=== PATIENT | female | born 1940 | race Caucasian/White ===

== ENCOUNTER → 2017-01-25 | Outpatient (CLI) | payer MEDICARE, OTHER ==
[~2017-01-25] MED LIST: ACIDOPHILUS PO; ADVAIR 250/28 DISKU1 IH; ALPARAZOLAM0.5 MG PO; ARAVA20 MG PO; ASMANEX TW0.22 MG/A1 IH; ASPIRIN E.C. 8181 MG PO; CELEBREX 200MG200 MG PO; CIPRO 500MG TA500 MG PO; CLEOCIN; DOXYCYCLINE 10100 MG PO; ENALAPRIL2.5 MG PO; FENTANYL PATCH; FISH OIL CONC1000 MG PO; IMDUR30 MG PO; IODINE PO; ISTALOL 2.5 ML2.5 ML OP; LEXAPRO20 MG PO; LIPITOR 40MG TA40 MG PO; LIVALO4 MG PO; MULTIPLE VITAMI1 TAB PO; NITROQUICK0.4 MG SL; NORCO; NORCO 325 MG-51 TAB PO; NORCO 325 MG-7.1 TAB PO; PAXIL CR25 MG PO; PLAVIX 75MG TAB75 MG PO; PRILOSEC 20MG20 MG PO; PRILOSEC20 MG PO; PROTONIX 40MG T40 MG PO; ROBITUSSIN15 MG/5 ML PO; SPIRIVA18 MCG IH; TOPROL PO; TOPROL XL 25MG25 MG PO; TOPROL XL25 MG PO; TUMS500 MG PO; TYLENOL 500MG500 MG PO; TYLENOL EXTRA500 M1 PO; TYLENOL PM EXTR1 TA1 PO; VICODIN 5/5001 UDTAB PO; VITAMIN B COMPL1 SGL PO; VITAMIN B COMPL1 TA1 PO; VITAMIN C BUFF500 MG PO; XANAX .25M0.25 MG/TA PO; ZOCOR40 MG PO; ZYRTEC10 MG PO; [UNRECOGNIZED DRUG - CODE] PO
== END ==
LOC: BHSO 10:52
DX: F41.1 Generalized anxiety disorder (principal)

== ENCOUNTER → 2017-07-27 | Outpatient (CLI) | payer MEDICARE, OTHER | LOC: BHSO 10:57 | DX: F41.1 Generalized anxiety disorder (principal) ==

== ENCOUNTER → 2018-02-01 | Outpatient (CLI) | payer MEDICARE, OTHER | LOC: BHSO 10:59 | DX: F41.1 Generalized anxiety disorder (principal) | CPT/HCPCS: G0463 ==

== ENCOUNTER → 2018-08-29 | Outpatient (CLI) | payer MEDICARE, OTHER | LOC: BHSO 13:55 | DX: F41.1 Generalized anxiety disorder (principal) | CPT/HCPCS: G0463 ==

== ENCOUNTER → 2019-02-27 | Outpatient (CLI) | payer MEDICARE, OTHER | LOC: BHSO 11:22 | DX: F41.1 Generalized anxiety disorder (principal) | CPT/HCPCS: G0463 ==

== ENCOUNTER → 2019-03-28 | Outpatient (CLI) | payer MEDICARE, OTHER | LOC: MC.RAD 10:45 | DX: Z12.31 Encounter for screening mammogram for malignant neoplasm of breast (principal) ==

== ENCOUNTER 2019-07-09 16:00 | Inpatient (IN) | payer MEDICARE ==
[~2019-07-09] VITALS: Ht 167.6 cm; Wt 50.1 kg
[2019-07-09 17:43] VITALS: BP 155/56; PULSE 72; TEMP 98.2
--- NOTE | 2019-07-09 18:32 | NUR ---
CONSULT CALLED TO [facility] FOR DR. BREANNA SANTO. THEY ARE NOT REFUGE [employer] BUT SPECIFIED DR CARLOS TO BE CONSULTED.
[2019-07-09 20:29] LABS: BASO # 0.1 (0.0-0.2); BASO % 0.6 % (0.0-2.0); EOS # 0.5 (0.0-0.7); EOS % 4.7 % (0-4.0); GRAN # 6.8 (1.4-6.5); GRAN % 70.6 % (42.2-75.2); LYMPH # 1.7 (1.2-3.4); LYMPH % 17.9 % (20.0-51.0); MEAN CELL VOLUME 98 fl (80.0-100.0); MEAN CORPUSCULAR HGB CONC 31 g/dl (33.0-37.0); MEAN PLATELET VOLUME 9.9 fl (7.4-10.4); MONO # 0.6 (0.1-0.6); MONO % 5.8 % (1.7-9.3); PLATELET COUNT 408 K/mm3 (130-400); REDCELL DISTRIBUTION WIDTH-CV 16.3 % (11.5-14.5)
[2019-07-09 20:33] LABS: HEMATOCRIT 23.4 % (37.0-47.0); HEMOGLOBIN 7.3 g/dl (12.5-16.0); MEAN CORPUSCULAR HEMOGLOBIN 30 pg (27.0-31.0)
[2019-07-09 20:46] LABS: CALCIUM 8.3 mg/dL (8.4-10.2); CREATININE, serum 0.9 (0.52-1.25); POTASSIUM 3.8 mmol/L (3.4-5.0)
[2019-07-09 20:51] LABS: CALCIUM 8.3 mg/dL (8.4-10.2); CREATININE, serum 0.89 (0.52-1.25); POTASSIUM 3.9 mmol/L (3.4-5.0)
[2019-07-09 21:21] LABS: THYROID STIMULATING HORMONE 1.37 uIU/mL (0.465-4.680)
[2019-07-09] MEDS ORDERED: PROTONIX 40MG T40 MG PO (21:46)
[2019-07-09] MEDS ORDERED: CYMBALTA 30MG30 MG PO (21:48)
--- NOTE | 2019-07-09 22:00 | NUR ---
Patient assessed at this time. Alert and oriented x 4, and able to make needs known. Reports level 8 pain to feet. Given PRN Antoine as requested for pain. IV to right forearm flushed. Site is without redness, warmth, swelling, and pain. LS CTA. Respirations even and unlabored. Denies SOB and dyspnea. HRR. Telemetry in place-NS. Capillary refill less than 3 seconds. Non-tenting skin turgor. BSAx4. 2+ edema BLE. Right foot partial amputation. Dressing to area CDI. Dressings to left toes x2, and left mims CDI. Doppler used to find pedal pulses. Resting in bed watching TV at this time. Call light is within reach.
--- NOTE | 2019-07-09 22:40 | NUR ---
Patient continues to complain of level 8 pain to left foot. Requested PRN APAP. Given as requested.
[2019-07-09 22:54] VITALS: BP 103/46; PULSE 80; TEMP 98.9
--- NOTE | 2019-07-09 23:45 | NUR ---
Continues to have pain to feet. Rated pain as a 9. Tearful, sitting on side of bed massaging feet. Given 2nd dose of PRN Helena.
[2019-07-10] VITALS (7 sets, daily range): BP systolic 98–152; BP diastolic 50–56; PULSE 56–89; TEMP 97.2–99
--- NOTE | 2019-07-10 06:04 | NUR ---
Patient has not voiced any furhter complaints of pain or discomfort at this time. Has called for assistance with going to the bathroom. Voices no questions, needs, or concerns at this time. Resting in bed with call light within reach.
--- NOTE | 2019-07-10 08:30 | NUR ---
Entered patient room as call light was on. Patient was on commode and assisted from commode to bed. She is upset, states that ortho put too much dressing on her foot and it was unnecessary. She does verbalize she has pain. Was administered PRN pain medication per her request. Respirations are even and nonlabored. Call light and personal items are within reach.
--- NOTE | 2019-07-10 09:06 | NUR ---
Initial visit; Patient thanked Hammersmith Helper for looking in on her, listening and offering spiritual care. Hammersmith Helper will continue to look in on [place].
[2019-07-10 10:44] LABS: IRON,SERUM 34 ug/dL (35-150)
[2019-07-10 11:00] LABS: TOTAL IRON BINDING CAPACITY 231 ug/dL (265-497)
[2019-07-10 11:39] LABS: BASO # 0.1 (0.0-0.2); BASO % 0.7 % (0.0-2.0); EOS # 0.5 (0.0-0.7); EOS % 5.6 % (0-4.0); GRAN # 6.5 (1.4-6.5); GRAN % 72.5 % (42.2-75.2); LYMPH # 1.3 (1.2-3.4); LYMPH % 14.3 % (20.0-51.0); MEAN CELL VOLUME 98 fl (80.0-100.0); MEAN CORPUSCULAR HGB CONC 32 g/dl (33.0-37.0); MONO # 0.6 (0.1-0.6); MONO % 6.6 % (1.7-9.3); PLATELET COUNT 435 K/mm3 (130-400); REDCELL DISTRIBUTION WIDTH-CV 16.3 % (11.5-14.5)
[2019-07-10 11:49] LABS: HEMATOCRIT 23.5 % (37.0-47.0); HEMOGLOBIN 7.4 g/dl (12.5-16.0); MEAN CORPUSCULAR HEMOGLOBIN 31 pg (27.0-31.0)
[2019-07-10 11:58] LABS: BILIRUBIN,TOTAL 0.2 mg/dL (0.0-1.0); C-REACTIVE PROTEIN 4.7 mg/dL (0.0-0.9); CALCIUM 8.5 mg/dL (8.4-10.2); MAGNESIUM 1.7 mg/dL (1.6-2.3); POTASSIUM 3.8 mmol/L (3.4-5.0); TOTAL PROTEIN 6.4 gm/dL (6.4-8.2)
--- NOTE | 2019-07-10 16:47 | NUR ---
Medical Radiation Tech met with patient to discuss discharge planning. Patient lives alone in [place]. Patient sees Dr. Herman for primary care and has [facility] deliver her medications. Patient reports she is mostly independent with ADLS and uses a walker and cane for assistance. Patient does not have DPOA-HC but wants her daughter Go and her sister Isabel to be designated. Patient states she does not want to complete form right now but may be up to it tomorrow. Patient states she plans to go home upon discharge and wants to be discharged home as soon as possible. Patient states she has [facility] past. SW will continue to follow as needed.
--- NOTE | 2019-07-10 16:47 | NUR ---
Patient removed dressing that orthopedics placed this morning around 1100 leaving her whole foot wound exposed on the right. Her wound is completely covered in slough. Later in the afternoon therapy has been wanting to ambulate patient and she requested a large bandaid to place over the wound. We did not have large bandaids, only standard. Patient stated thats what she wanted to use, I suggested that it would not be a good idea to use those as the adhesive would stick to the wound bed, she declined the gauze or nursing recommendation. She proceeded to stick bandaids to area and put sock on to walk. She also had placed call to Dr. Maldonado to speak with him as she was unhappy with things at the hospital. We did have a 3 way phone call, she stated she wasnt receiving her pain medication which she had as charted in OCT. She expressed she wanted her celebrex, was explained to her again she could not receive the medication as her hemaglobin has decreased. Dr. Maldonado explained to patient things that happen during hospital stays and she has seemed to be pleased.
[2019-07-10 21:11] LABS: HAPTOGLOBIN 282 mg/dL (36-195); TRANSFERRIN 158 mg/dL (192-382)
[2019-07-10 21:29] LABS: FOLATE (FOLIC ACID) 9.1 ng/mL (7.0-31.4)
[2019-07-11 00:45] VITALS: PULSE 76
[2019-07-11 03:59] VITALS: BP 100/56; PULSE 72
[2019-07-11 06:25] LABS: BASO # 0.1 (0.0-0.2); BASO % 0.6 % (0.0-2.0); EOS # 0.6 (0.0-0.7); EOS % 5.9 % (0-4.0); GRAN # 7.3 (1.4-6.5); GRAN % 66.7 % (42.2-75.2); LYMPH # 2.1 (1.2-3.4); LYMPH % 19.7 % (20.0-51.0); MEAN CELL VOLUME 97 fl (80.0-100.0); MEAN CORPUSCULAR HGB CONC 32 g/dl (33.0-37.0); MEAN PLATELET VOLUME 9.8 fl (7.4-10.4); MONO # 0.7 (0.1-0.6); MONO % 6.5 % (1.7-9.3); PLATELET COUNT 392 K/mm3 (130-400); RED BLOOD COUNT 2.37 M/mm3 (4.10-5.30); REDCELL DISTRIBUTION WIDTH-CV 16.7 % (11.5-14.5)
[2019-07-11 06:32] LABS: HEMOGLOBIN 7.3 g/dl (12.5-16.0); MEAN CORPUSCULAR HEMOGLOBIN 31 pg (27.0-31.0)
[2019-07-11 06:50] LABS: CALCIUM 8.5 mg/dL (8.4-10.2); CREATININE, serum 1.01 (0.52-1.25); POTASSIUM 4.2 mmol/L (3.4-5.0)
[2019-07-11 08:07] VITALS: BP 119/59; PULSE 71; TEMP 97.7
[2019-07-11] MEDS ORDERED: FERROUS SU325 MG/TAB PO (08:56)
[2019-07-11] MEDS ORDERED: DUO-KAPS1 CAP PO (08:57)
--- NOTE | 2019-07-11 10:33 | NUR ---
0800: Assessment completed. Pt alert and orientated x4, resting in bed. Reports /10 for pain in bilateral feet. Pt states pain is decreasing from last assessment 03/31. I.N.T. in right forearm, no redness, pain or warmth present. Dressing and socks on feet, pt requested to leave socks on during assessment. Pt stated Dr. Jenkins was in recently to change to dressings. Pt states an increase of pain when anything touches feet. Floated heels with pillows, pt stated that helped. Call light within reach. pt denies any needs at this time
[2019-07-11 11:10] VITALS: BP 132/59; PULSE 71; TEMP 98.7
--- NOTE | 2019-07-11 13:50 | NUR ---
Resistance Welder attended clinical rounds with the team. Hospitalist discussed Home Health and patient in agreeance. SW met with patient following rounds and patient was adamant that she would not go to a detention facility, even for a short term or skilled stay. SW presented Medicare.gov list of Home Health agencies that serve her zip code. Patient selected [facility]. GARRETT faxed referral to [facility] and spoke to Ana about referral. Ana to follow up with GARRETT. GARRETT contacted patient's daughter, Go (ph#[phone]) who expressed concern for patient going home. Go states she feels patient would be safer going to a skilled facility for therapy. Go also expressed concern about the condition of patient's home. Following phone call, GARRETT made report to Adult Protective Services (intake #[id number]).
--- NOTE | 2019-07-11 13:55 | NUR ---
Flat Cutter spoke with patient about private duty services and meals on wheels, per patient's daughter's request. SW explained to patient that her daughter, Go reports patient may need some help with cleaning and with meals. Patient agrees. With patient's permission, patient contacted [facility] in [place] who states he will meet with the patient at 1:00pm. SW also contacted [facility] who stated to have patient call them to set up time for intake. SW provided phone number to [facility] to patient who states she will call. SW to continue to follow.
--- NOTE | 2019-07-11 15:53 | NUR ---
Enrobing Machine Feeder spoke with patient's daughter, Go who believes patient would be safer in a skilled facility although understands patient cannot be forced to go. SW received confirmation that [facility] can take Home Health referral. SW faxed discharge orders. SW met with patient and patient states a local volunteer, Cj will provide transportation home.
--- NOTE | 2019-07-11 16:55 | NUR ---
PT HAD UNEVENTFUL DAY. DRESSINGS TO BILAT FEET CHANGED THIS SHIFT AFTER DR. WHITAKER SEEN THEM. PT C/O PAIN AFTERWARDS, ADMINITERED PAIN MEDS.
--- NOTE | 2019-07-11 16:55 | NUR ---
IV AND TELE REMOVED WITHOUT ISSUE. PT ESCORTED [facility]EE VIA W/C BY EDUCATION INSTRUCTOR.
== END 2019-07-11 17:00 | disposition home health service (06) | DRG 299 ==
LOC: MEDICAL 16:00
PROVIDERS: Nurse Practitioner Family; ADMIT Internal Medicine Interventional Cardiology
DX: I70.263 Atherosclerosis of native arteries of extremities with gangrene, bilateral legs (principal); E43 Unspecified severe protein-calorie malnutrition; Z68.1 Body mass index [BMI] 19.9 or less, adult; L97.529 Non-pressure chronic ulcer of other part of left foot with unspecified severity; L97.519 Non-pressure chronic ulcer of other part of right foot with unspecified severity; D64.89 Other specified anemias; R53.81 Other malaise; I10 Essential (primary) hypertension; I25.10 Atherosclerotic heart disease of native coronary artery without angina pectoris; J44.9 Chronic obstructive pulmonary disease, unspecified; K21.9 Gastro-esophageal reflux disease without esophagitis; F41.9 Anxiety disorder, unspecified; M06.9 Rheumatoid arthritis, unspecified
CPT/HCPCS: 99223; 99239; J1650

== ENCOUNTER 2019-07-25 09:43 | Outpatient (RCR) | payer MEDICARE, OTHER ==
[~2019-07-25] VITALS: Ht 167.6 cm; Wt 51.2 kg
[2019-07-25] VITALS (10 sets, daily range): BP systolic 103–139; BP diastolic 58–96; PULSE 73–82; TEMP 97.9–98.7
[~2019-07-25 09:43] MED LIST changes: +CYMBALTA 30MG30 MG PO; +DUO-KAPS1 CAP PO; +FERROUS SU325 MG/TAB PO
== END 2019-07-25 17:54 | disposition home or self-care (01) ==
LOC: EUO 09:43
DX: I99.8 Other disorder of circulatory system (principal); I70.213 Atherosclerosis of native arteries of extremities with intermittent claudication, bilateral legs; F41.9 Anxiety disorder, unspecified; I50.22 Chronic systolic (congestive) heart failure; F17.210 Nicotine dependence, cigarettes, uncomplicated
CPT/HCPCS: J7050; P9016

== ENCOUNTER → 2019-09-20 | Outpatient (CLI) | payer MEDICARE, OTHER | LOC: BHSO 10:41 | DX: F41.1 Generalized anxiety disorder (principal) | CPT/HCPCS: G0463 ==

== ENCOUNTER → 2020-03-18 | Outpatient (CLI) | payer MEDICARE, OTHER | LOC: BHSO 10:43 | DX: F41.0 Panic disorder [episodic paroxysmal anxiety] (principal) | CPT/HCPCS: G0463 ==

== ENCOUNTER → 2021-02-09 | Outpatient (CLI) | payer MEDICARE, OTHER ==
[2021-02-09 12:05] LABS: CALCIUM 9.1 mg/dL (8.4-10.2); CREATININE, serum 0.93 (0.52-1.25); POTASSIUM 3.5 mmol/L (3.4-5.0)
== END ==
LOC: ZCOL.LAB 11:53
PROVIDERS: Internal Medicine Interventional Cardiology
DX: I73.9 Peripheral vascular disease, unspecified (principal)

== ENCOUNTER → 2021-05-20 | Outpatient (CLI) | payer MEDICARE, OTHER ==
[2021-05-20 11:29] LABS: BASO % 0.4 % (0.0-2.0); EOS # 0.2 (0.0-0.7); EOS % 1.8 % (0-4.0); GRAN % 75.9 % (42.2-75.2); HEMOGLOBIN 10.1 g/dl (12.5-16.0); LYMPH # 1.5 (1.2-3.4); LYMPH % 14.5 % (20.0-51.0); MEAN CELL VOLUME 97 fl (80.0-100.0); MEAN CORPUSCULAR HEMOGLOBIN 31 pg (27.0-31.0); MEAN CORPUSCULAR HGB CONC 32 g/dl (33.0-37.0); MEAN PLATELET VOLUME 10.7 fl (7.4-10.4); MONO # 0.8 (0.1-0.6); MONO % 7.1 % (1.7-9.3); PLATELET COUNT 319 K/mm3 (130-400); RED BLOOD COUNT 3.24 M/mm3 (4.10-5.30); REDCELL DISTRIBUTION WIDTH-CV 14.9 % (11.5-14.5)
[2021-05-20 11:34] LABS: HEMATOCRIT 31.4 % (37.0-47.0)
== END ==
LOC: ZCOL.LAB 10:47
PROVIDERS: Internal Medicine Interventional Cardiology
DX: L08.9 Local infection of the skin and subcutaneous tissue, unspecified (principal)

== ENCOUNTER → 2021-06-25 | Outpatient (CLI) | payer MEDICARE, OTHER | LOC: ZCOL.LAB 16:47 | DX: B99.9 Unspecified infectious disease (principal); A49.8 Other bacterial infections of unspecified site ==

== ENCOUNTER 2021-08-30 11:37 | Inpatient (IN) | payer MEDICARE, OTHER ==
[~2021-08-30] VITALS: Ht 167.6 cm; Wt 44.4 kg
[2021-08-30 12:05] LABS: BASO % 0.3 % (0.0-2.0); EOS # 0.1 K/mm3 (0.0-0.7); EOS % 0.4 % (0.0-4.0); GRAN # 14.3 K/mm3 (1.4-6.5); GRAN % 89.8 % (42.2-75.2); LYMPH # 0.9 K/mm3 (1.2-3.4); LYMPH % 5.7 % (20.0-51.0); MEAN CELL VOLUME 96 fl (80.0-100.0); MEAN CORPUSCULAR HGB CONC 33 g/dl (33.0-37.0); MEAN PLATELET VOLUME 9.4 fl (7.4-10.4); MONO # 0.5 K/mm3 (0.1-0.6); PLATELET COUNT 612 K/mm3 (130-400); RED BLOOD COUNT 2.95 M/mm3 (4.10-5.30); REDCELL DISTRIBUTION WIDTH-CV 14.6 % (11.5-14.5)
[2021-08-30 12:06] LABS: HEMATOCRIT 28.2 % (37.0-47.0); HEMOGLOBIN 9.2 g/dl (12.5-16.0); MEAN CORPUSCULAR HEMOGLOBIN 31 pg (27-31)
[2021-08-30 12:23] LABS: ARTERIAL BLD GAS TCO2 CT 16.5; ARTERIAL BLOOD GAS BASE EXCESS -9.6 (-2-2); ARTERIAL BLOOD GAS HCO3 15.6 meq/L (22-26); ARTERIAL BLOOD GAS PCO2 31.1 mmHg (35-45); ARTERIAL BLOOD GAS PO2 80.1 mmHg (80-100); ARTERIAL BLOOD GAS pH 7.32 (7.35-7.45)
[2021-08-30 12:23] LABS: ALBUMIN 2.1 gm/dL (3.4-4.8); BILIRUBIN,TOTAL 0.4 mg/dL (0.2-1.2); C-REACTIVE PROTEIN 20.56 mg/dL (0.00-0.50); CALCIUM 8.9 mg/dL (8.4-10.2); CREATININE, serum 1.46 mg/dL (0.57-1.11); POTASSIUM 3.4 mmol/L (3.5-4.5); TOTAL PROTEIN 7.7 gm/dL (6.2-8.1)
[2021-08-30 12:39] LABS: TROPONIN-I 0.039 ng/mL (0.00-0.033)
[2021-08-30 20:30] VITALS: BP 139/51; PULSE 86; TEMP 98.8
[2021-08-31] VITALS (7 sets, daily range): BP systolic 94–163; BP diastolic 43–62; PULSE 65–85; TEMP 97.5–98.2
--- NOTE | 2021-08-31 00:53 | NUR ---
PT UP TO MEDICAL FLOOR BY ED STAFF VIA STRETCHER AT 2030, PT A/OX4, 02 ROOM AIR, VSS, REPORTS PAIN 10/10, ASSESMENT COMPLETE. LLE HAS THREE PRESSURE ULCERS ON FONTENOT, ALL STAGE 2 PRESSURE ULCERS. PT HAS ALL 5 RIGHT TOES AMPUTATED, RIGHT FOOT NOTED TO BE NECROTIC, DRY/SCALING AND SWOLLEN. RLE PITTING EDEMA +1. THIS NURSE PROVIDED WOUND CARE TO BLE, DRAIN 4X4 SPONGE, TEFLA AND GAUZE WRAPS UTILIZED. PT SACRUM REDENNED AND BLANCHABLE. PT PALE AND FRAIL. FALL PRECAUTIONS IN PLACE. PT IS VERY ANXIOUS, DEMANDING, AND UNPLEASANT. MEDICATION REC COMPLETE TO PT'S BEST COGNITIVE ABILITY. ABX ADMINISTERED ORDERED. PAIN MEDICATION ADMINISTERED ORDERED. POC DISCUSSED WITH PT. PT NPO OF 0000 FOR POSSIBLE DIAGNOSTIC TESTING FOR FOLLOWING MORNING. PT VERBALIZES UNDERSTANDING.
--- NOTE | 2021-08-31 01:18 | NUR ---
AT ABOUT 2230 ORTHO CONSULT CONTACTED. VERBALIZES CONFIRMATION.
--- NOTE | 2021-08-31 05:41 | NUR ---
PT CONTINUES TO C/O PAIN THIS NIGHT. MEDICATION ADMINISTERED ORDERED. ABX INFUSING TO LFA IV AT 25CC N/S INFUSING AT 75CC TO LFA IV. PT HAS HAD ONE BM THIS EVENING STOOL WAS NOTED TO BE WATERY. PT HAS SLEPT INTERMITTENTLY THIS SHIFT. PT EXPRESSES NO ADDITIONAL NEEDS AT THIS TIME. CALL LIGHT WITHIN REACH.
--- NOTE | 2021-08-31 05:53 | NUR ---
80 yo female admitted for further care and management of a possible skin/soft tissue infection involving bilateral lower extremities. ht 66 inches wt 45.5 kg SCr 1.46 with estimated CrCl ~20 ml/min half life 24 hours Plan: Patient received an initial loading dose of vancomycin 1000 mg x1 on 08/30 (22 mg/kg); will follow with a maintenance regimen of vancomycin 750 mg q24h to target a goal trough of 10-15 mcg/ml. Will follow patient's renal function, micro data, and vancomycin levels as indicated to assess for any necessary changes to regimen. Thank you for this dosing consult.
[2021-08-31 07:14] LABS: BASO # 0.1 K/mm3 (0.0-0.2); BASO % 0.4 % (0.0-2.0); EOS # 0.2 K/mm3 (0.0-0.7); EOS % 1.6 % (0.0-4.0); GRAN # 9.5 K/mm3 (1.4-6.5); GRAN % 79.4 % (42.2-75.2); LYMPH # 1.5 K/mm3 (1.2-3.4); LYMPH % 12.4 % (20.0-51.0); MEAN CELL VOLUME 95 fl (80.0-100.0); MEAN CORPUSCULAR HGB CONC 33 g/dl (33.0-37.0); MEAN PLATELET VOLUME 9.6 fl (7.4-10.4); MONO # 0.7 K/mm3 (0.1-0.6); MONO % 5.6 % (1.7-9.3); RED BLOOD COUNT 2.58 M/mm3 (4.10-5.30); REDCELL DISTRIBUTION WIDTH-CV 14.6 % (11.5-14.5)
[2021-08-31 07:15] LABS: HEMATOCRIT 24.6 % (37.0-47.0); MEAN CORPUSCULAR HEMOGLOBIN 31 pg (27-31); PLATELET COUNT 487 K/mm3 (130-400)
--- NOTE | 2021-08-31 07:29 | NUR ---
AT 0730 CARDIO CONSULT CONTACTED. DOCTOR INFORMS HE HAS ALREADY BEEN NOTIFIED.
[2021-08-31 07:31] LABS: ALBUMIN 1.8 gm/dL (3.4-4.8); CREATININE, serum 1.08 mg/dL (0.57-1.11); PHOSPHOROUS 2.6 mg/dL (2.3-4.7)
--- NOTE | 2021-08-31 07:35 | NUR ---
AT [address] PIERSON VERBALIZES CONFIRMATION.
--- NOTE | 2021-08-31 15:30 | NUR ---
SW met with the patient to discuss discharge plan. The patient was sleepy during intake and would fall asleep in-between questions. The patient lives alone in [place]. She reports independence with ADLs and has a cane and walker. She reports that she has been receiving wound care from [facility]. SW faxed updates to [facility]. The patient's PCP is Dr. Jesus Mai. The patient's DPOA-HC is in EMR and it designates her daughter, Go Starks (ph#[phone], [place]) or Ritu Singh. The patient reports that she no longer wants Ritu on her DPOA-HC. SW discussed completing a new one while here. The patient declined completing a new one at this time, but would like to at a later time when she is feeling better. The patient is a 1-2 assist. OT is recommending HH vs SNF. Ortho is following and the patient's options are wound care with antibiotics or an amputation. SW addressed this with the patient and post-acute rehab. The patient would like to think about it, but is open for SW to send referrals to the local facilities. SW contacted and faxed a referral to [facility], [facility], and [facility]. Awaiting screens. SW contacted the patient's daughter, Go, and reviewed the above with her. Go is in favor of SNF and thinks this would be best for the patient. SW to continue to follow. *Discharge plan: SNF*
--- NOTE | 2021-08-31 18:00 | NUR ---
Patient had an ok day. Scheduled medications given. Shift assessment performed. Pain medications given three times this shift for BLE pain. No longer able to flush IV in left forearm. IV DC'd, catheter intact, no signs of phlebitis. New 20 gauge started in left upper forearm. Patient is currently resting in bed. VSS. Call light in reach. Fall percautions in place.
[2021-09-01 04:02] VITALS: BP 123/56; PULSE 64; TEMP 97.7
[2021-09-01 08:17] LABS: ALBUMIN 1.7 gm/dL (3.4-4.8); CALCIUM 8.2 mg/dL (8.4-10.2); CREATININE, serum 0.9 mg/dL (0.57-1.11); PHOSPHOROUS 2.1 mg/dL (2.3-4.7); POTASSIUM 3.6 mmol/L (3.5-4.5)
[2021-09-01 08:18] LABS: BASO % 0.3 % (0.0-2.0); EOS # 0.4 K/mm3 (0.0-0.7); GRAN # 8.9 K/mm3 (1.4-6.5); GRAN % 77.2 % (42.2-75.2); LYMPH # 1.6 K/mm3 (1.2-3.4); LYMPH % 13.8 % (20.0-51.0); MEAN CELL VOLUME 99 fl (80.0-100.0); MEAN CORPUSCULAR HGB CONC 32 g/dl (33.0-37.0); MEAN PLATELET VOLUME 9.7 fl (7.4-10.4); MONO # 0.6 K/mm3 (0.1-0.6); MONO % 5.3 % (1.7-9.3); PLATELET COUNT 458 K/mm3 (130-400); RED BLOOD COUNT 2.48 M/mm3 (4.10-5.30); REDCELL DISTRIBUTION WIDTH-CV 14.9 % (11.5-14.5)
[2021-09-01 08:24] LABS: HEMATOCRIT 24.6 % (37.0-47.0); HEMOGLOBIN 7.8 g/dl (12.5-16.0); MEAN CORPUSCULAR HEMOGLOBIN 31 pg (27-31)
[2021-09-01 08:49] VITALS: BP 145/77; PULSE 73; TEMP 97.8
[2021-09-01 13:15] VITALS: BP 144/49; PULSE 89; TEMP 98.3
[2021-09-01 15:31] VITALS: BP 118/53; PULSE 74; TEMP 97.6
--- NOTE | 2021-09-01 16:20 | NUR ---
GARRETT faxed updates to [facility], and [facility]. Oc, at [facility], reports that he did not receive the initial referral. GARRETT refaxed that information to Oc. Awaiting screens. The patient asked that ortho contact her daughter to discuss the options again of wound care and antibiotics or the amputation.
--- NOTE | 2021-09-01 18:00 | NUR ---
Patient has had an uneventful day. Scheduled medications given. Shift assessment perfomred. Patient given pain three times this shift. Wounds cleansed and dressed using xeroform gauze, antimicrobial aquacell, and kerlex. Patient currently resting in bed. Call light in reach. Fall percautions in place. VSS. Patient A&O.
[2021-09-01 19:00] LABS: CLOSTRIDIUM DIFF A/B NEG; CLOSTRIDIUM DIFF A/B INTERP No C.diff present
[2021-09-01 20:52] VITALS: BP 129/57; PULSE 78; TEMP 97.5
[2021-09-02 00:28] VITALS: BP 139/44; PULSE 73; TEMP 97.9
[2021-09-02 04:13] VITALS: BP 135/55; PULSE 76; TEMP 99
--- NOTE | 2021-09-02 05:23 | NUR ---
NO CLINICAL CHANGES OVER NIGHT, BLE WOUND CARE PROVIDED,PT REPORTS PAIN 10/10, PAIN MEDICATION ADMINISTERED ORDERED, ABX ADMINISTERED ORDERED, 02 REMAINS ROOM AIR, VSS, TEMPERATURE SLIGHTLY ELEVATED, TYLENOL ADMINISTERED ORDERED. ALL NEEDS MET THIS NIGHT. CALL LIGHT WITHIN REACH.
[2021-09-02 07:43] LABS: BASO # 0.1 K/mm3 (0.0-0.2); BASO % 0.5 % (0.0-2.0); EOS # 0.4 K/mm3 (0.0-0.7); EOS % 3.5 % (0.0-4.0); GRAN # 9.5 K/mm3 (1.4-6.5); GRAN % 76.6 % (42.2-75.2); LYMPH # 1.8 K/mm3 (1.2-3.4); LYMPH % 14.3 % (20.0-51.0); MEAN CELL VOLUME 98 fl (80.0-100.0); MEAN CORPUSCULAR HGB CONC 32 g/dl (33.0-37.0); MEAN PLATELET VOLUME 9.8 fl (7.4-10.4); MONO # 0.6 K/mm3 (0.1-0.6); MONO % 4.6 % (1.7-9.3); PLATELET COUNT 440 K/mm3 (130-400); RED BLOOD COUNT 2.45 M/mm3 (4.10-5.30)
[2021-09-02 07:44] LABS: HEMATOCRIT 24.1 % (37.0-47.0); HEMOGLOBIN 7.7 g/dl (12.5-16.0); MEAN CORPUSCULAR HEMOGLOBIN 31 pg (27-31)
[2021-09-02 08:00] VITALS: BP 167/52; PULSE 71; TEMP 98.4
[2021-09-02 08:00] LABS: ALBUMIN 1.7 gm/dL (3.4-4.8); CALCIUM 8.2 mg/dL (8.4-10.2); CREATININE, serum 0.82 mg/dL (0.57-1.11); MAGNESIUM 1.8 mg/dL (1.6-2.6); POTASSIUM 3.6 mmol/L (3.5-4.5)
--- NOTE | 2021-09-02 09:15 | NUR ---
Shift assessment complete. Pt resting in bed, incontinent of stool. Bed change and bed bath done and pt assisted onto bedpan. Had another watery brown stool. Reports 8/10 pain to right foot. Ulcers to bilateral heels and feet. Dressings CDI. Lungs CTA. Heart RRR. Denies needs at this time. Call light in reach.
[2021-09-02 12:30] VITALS: BP 149/49; PULSE 79; TEMP 98.3
--- NOTE | 2021-09-02 14:32 | NUR ---
Cardiology is recommending that the patient needs an angiogram. The clinical team and cardiology are working together on plans for this. SW notified and faxed updates to [facility], [facility], and [facility]. SW inquired of all three if they can take. Awaiting responses.
--- NOTE | 2021-09-02 15:23 | NUR ---
Kristel, at [facility], reports that they do not have any beds available at this time.
--- NOTE | 2021-09-02 16:41 | NUR ---
The patient is to transfer to [facility] today, 09/02. No additional needs at this time.
[2021-09-02 17:19] VITALS: BP 150/55; PULSE 76; TEMP 98.4
--- NOTE | 2021-09-02 18:30 | NUR ---
Pt picked up by EMS and en route to [facility]. Pt's daughter Go called and updated of transfer.
--- NOTE | 2021-09-02 18:39 | NUR ---
Report called to nurse at [facility]. All questions answered. EMS picking up pt at this time.
== END 2021-09-02 18:30 | disposition short-term general hospital (02) | DRG 564 ==
LOC: COL.ER 11:37 → MEDICAL 17:22
PROVIDERS: Internal Medicine Infectious Disease; Physician Assistant; ADMIT Internal Medicine
DX: T87.43 Infection of amputation stump, right lower extremity (principal); E43 Unspecified severe protein-calorie malnutrition; I51.81 Takotsubo syndrome; L03.116 Cellulitis of left lower limb; L03.115 Cellulitis of right lower limb; N17.9 Acute kidney failure, unspecified; Z68.1 Body mass index [BMI] 19.9 or less, adult; I96 Gangrene, not elsewhere classified; I25.10 Atherosclerotic heart disease of native coronary artery without angina pectoris; K21.9 Gastro-esophageal reflux disease without esophagitis; F41.9 Anxiety disorder, unspecified; M06.9 Rheumatoid arthritis, unspecified; I11.0 Hypertensive heart disease with heart failure; I50.9 Heart failure, unspecified; I73.9 Peripheral vascular disease, unspecified; J44.9 Chronic obstructive pulmonary disease, unspecified; E87.6 Hypokalemia; D75.839 Thrombocytosis, unspecified; B95.4 Other streptococcus as the cause of diseases classified elsewhere; D64.9 Anemia, unspecified; I34.0 Nonrheumatic mitral (valve) insufficiency; Y83.5 Amputation of limb(s) as the cause of abnormal reaction of the patient, or of later complication, without mention of misadventure at the time of the procedure; Z79.82 Long term (current) use of aspirin
CPT/HCPCS: OP; 99223-AI; 99232-AI; 99233-AI; 99239; J1644; J2270; J2543; J3370; J7030; J7040; J7050